=== PATIENT | male | born 1985 | race Caucasian/White ===

== ENCOUNTER 2017-05-19 14:32 | Emergency (ER) | payer OTHER ==
[~2017-05-19] VITALS: Ht 193 cm; Wt 76.4 kg
[~2017-05-19 14:32] MED LIST: Ascorbic Acid,Ester- PO; Aspirin E.C. PO; DEPAKOTE250 MG PO; DILANTIN100 MG PO; DIVALPROEX SOD500 M1 PO; Dilantin PO; FLEXERIL10 MG PO; Habitrol,Nicoderm CQ TD; KEPPRA500 MG PO; Keppra PO; Miralax, Glycolax PO; PHENYTOIN SODI100 M1 PO; Protonix PO; Senokot,Sennagen PO; Theragran PO; Tylenol Regular Stre PO; ULTRAM50 MG PO; Zoloft PO; oxyCODONE PO
[2017-05-19 15:13] LABS: HEMATOCRIT 42.2 % (38.0-50.0); HEMOGLOBIN 14.4 G/DL (12.5-16.6); MCH 30.2 PG (29.0-34.0); MCHC 34.1 G/DL (30.0-36.0); MCV 88.5 FL (86-99); RBC DIS.WIDTH-CV 12.7 % (11.8-14.6); RBC DIS.WIDTH-SD 41.7 % (39-53); RED BLOOD COUNT 4.77 M/uL (4.00-5.50); WHITE BLOOD COUNT 7.8 K/uL (4.1-10.2)
[2017-05-19 15:23] LABS: CHLORIDE 109 mEq/L (99-109); POTASSIUM 5.1 mEq/L (3.7-5.4); SODIUM 139 mEq/L (136-147)
[2017-05-19 15:25] LABS: GLUCOSE 78 mg/dL (70-99)
[2017-05-19 15:29] LABS: CREATININE 0.8 mg/dL (0.6-1.3); GFR ESTIMATE (CALCULATED) > 59 mL/min/ (58.99-99999); UREA NITROGEN (BUN) 8 mg/dL (9-23)
[2017-05-19] MEDS ORDERED: PHENYTOIN SODI100 M1 PO (16:04)
[2017-05-19 16:12] LABS: PLAT.SUFFICIENCY ADEQUATE; PLATELET COUNT 242 K/uL (156-360)
[2017-05-19 17:17] LABS: APPEARANCE CLEAR ((CLEAR)); BILIRUBIN NEGATIVE; BLOOD NEGATIVE; COLOR YELLOW ((YELLOW)); GLUCOSE (STRIP) NEGATIVE; KETONES NEGATIVE; LEUKOCYTES NEGATIVE; NITRITE NEGATIVE; PROTEIN (STRIP) 30; SPECIFIC GRAVITY 1.013 (1.000-1.030); UCUL ADDED? NO; UROBILINOGEN 0.2 MG/DL (0.2-1.0)
[2017-05-19 18:36] VITALS: BP 105/70
== END 2017-05-19 18:38 | disposition home or self-care (01) ==
LOC: EME 14:32
DX: G40.409 Other generalized epilepsy and epileptic syndromes, not intractable, without status epilepticus (principal); Z91.14 Patient's other noncompliance with medication regimen; R41.82 Altered mental status, unspecified; G44.209 Tension-type headache, unspecified, not intractable; F41.9 Anxiety disorder, unspecified; F32.9 Major depressive disorder, single episode, unspecified; F17.200 Nicotine dependence, unspecified, uncomplicated; Z87.820 Personal history of traumatic brain injury; Z98.890 Other specified postprocedural states
CPT/HCPCS: 80048; 80185; 81003; 85027; 99281; 99284; J1165; J2405; J7050